=== PATIENT | male | born 2000 | race Hispanic/Latino ===

== ENCOUNTER 2021-03-21 10:27 | Emergency (ER) | payer MEDICARE ==
[~2021-03-21] VITALS: Ht 149.9 cm; Wt 46.7 kg
[2021-03-21 12:11] LABS: CLARITY,URINE CLEAR (CLEAR); COLOR,URINE YELLOW (YELLOW); KETONES,URINE 1+ (NEGATIVE); LEUKOCYTE ESTERASE ,URINE NEGATIVE (NEGATIVE); NITRITE,URINE NEGATIVE (NEGATIVE); PROTEIN,URINE DIPSTICK NEGATIVE (NEGATIVE)
[2021-03-21 12:12] LABS: BACTERIA,URINE FEW /HPF; EPITHELIAL CELLS,URINE FEW /LPF; RBC,URINE 0-5 /HPF (0-5); URINE UROBILINOGEN 0.2 mg/dL (0.2 - 1); WBC,URINE (MAN) 0-5 /HPF (0-5)
== END 2021-03-21 14:08 | disposition home or self-care (01) ==
LOC: ER 10:50
DX: N50.819 Testicular pain, unspecified (principal); G40.909 Epilepsy, unspecified, not intractable, without status epilepticus; E11.649 Type 2 diabetes mellitus with hypoglycemia without coma; Z85.6 Personal history of leukemia
CPT/HCPCS: 36415; 76870; 81001; 82948; 87086; 93976; 99283

== ENCOUNTER 2021-11-15 01:59 | Emergency (ER) | payer MEDICARE ==
[~2021-11-15] VITALS: Ht 149.9 cm; Wt 46.7 kg
== END 2021-11-15 03:28 | disposition home or self-care (01) ==
LOC: ER 02:07
DX: R10.10 Upper abdominal pain, unspecified (principal); K59.00 Constipation, unspecified; E11.9 Type 2 diabetes mellitus without complications; E03.9 Hypothyroidism, unspecified; G40.909 Epilepsy, unspecified, not intractable, without status epilepticus; Z85.6 Personal history of leukemia
CPT/HCPCS: 36415; 74018; 82948; 99283